=== PATIENT | male | born 1945 | race Caucasian/White ===

== ENCOUNTER → 2017-04-24 | Outpatient (CLI) | payer BC ==
[~2017-04-24] MED LIST: AMIO200T4 PO; ASPI81TA28 PO; CARV6.25 PO; CGN1 PO; FRS/40 PO; LISI-729 PO; MULT-506 PO; PRLSR20 PO; TRIF5TAB PO; VITACAP26 PO; VITAMIN E PO
--- NOTE | 2017-04-24 10:02 | DIAGNOSTIC IMAGING REPORT ---
ABDOMEN AND PELVIS CT WITH AND WITHOUT IV CONTRAST, UROGRAM PROTOCOL CT DOSE: 2531.81 mGy.cm HISTORY: N20.0 Calculus of [id number] Personal history of bladder cancer TECHNIQUE: Multiaxial CT images of the abdomen and pelvis were performed both before and after the use of intravenous contrast to evaluate the urinary system. Maximal intensity projection images were performed at the workstation by the radiologist. A dose lowering technique was utilized adhering to the principles of ALARA. COMPARISON STUDY: None. FINDINGS: The right kidney is surgically absent. There is a 2 mm stone within the left kidney. No left ureteral calculi. Calcifications along the left side the bladder which could be within the wall. The residual right ureter is normal in course and caliber. No soft tissue masses within the right nephrectomy bed. Mild left perinephric edema which is nonspecific. No hydronephrosis. A 1.5 cm hypodense lesion within the left kidney. This likely represents a cyst. Abnormal asymmetric lobular thickening along the left side of the bladder. This includes a focal masslike area of thickening on image 392 which measures 2.1 x 1.1 cm. The mid to distal left ureter is not opacified which results in suboptimal evaluation. The ureters normal in course and caliber. No suspicious filling defects seen within the left renal collecting system or proximal left ureter. Small to moderate right pleural effusion. The heart is mildly enlarged. Consolidation within the right lower lobe posteriorly favors compressive atelectasis from the pleural effusion. Mild emphysema. There is also partial visualization of the right middle lobe consolidation which favors partial collapse. Bilateral L4 and L5 pars defects with grade II anterolisthesis of L4 on L5 and severe disc space narrowing. The unenhanced liver, spleen, right adrenal gland, and pancreas are unremarkable. There is a 2.3 cm stone within the gallbladder neck. The gallbladder is not significantly distended. There is questionable minimal pericholecystic inflammatory change. Nodular thickening of the left adrenal gland. No retroperitoneal lymphadenopathy. Tiny fat-containing umbilical hernia. Fatty atrophy of the right rectus abdominis muscle. No pelvic lymphadenopathy. No bowel wall thickening or obstruction. Colonic diverticulosis. Normal appendix. IMPRESSION: 1. Prior right nephrectomy. 2. Left-sided nephrolithiasis. No ureteral stones. No hydronephrosis. 3. Abnormal asymmetric lobular thickening within the left bladder wall with a focal 2.1 x 1.1 cm area of masslike thickening at this location. This is concerning for a urothelial malignancy. There is also calcification along the left side of the bladder which could be within the wall given the nondependent appearance. Direct visualization is recommended for further evaluation. 4. The majority of the left ureter is not opacified which results in suboptimal evaluation. No suspicious filling defects seen within the opacified left renal collecting system or proximal left ureter. 5. Small to moderate right pleural effusion. 6. Consolidation within the right middle lobe which favors partial atelectasis. Consider follow nonemergent chest CT for further evaluation and to exclude the possibility of a nonvisualized central obstructing lesion. 7. A large stone within the neck of the gallbladder with possible pericholecystic inflammatory change. Consider right upper quadrant ultrasound if the patient is experiencing right upper quadrant abdominal pain. 8. Additional findings as described above. Electronically signed by: Sean Stuart M.D. 04/24/2017 10:00 AM Dictated Date/Time: 04/24/2017 9:47 AM
== END | disposition home or self-care (01) ==
LOC: C.CTS 09:19
PROVIDERS: ATTEND Urology
DX: N20.0 Calculus of kidney (principal); Z85.51 Personal history of malignant neoplasm of bladder; Z90.5 Acquired absence of kidney; J90 Pleural effusion, not elsewhere classified; R91.8 Other nonspecific abnormal finding of lung field; K80.20 Calculus of gallbladder without cholecystitis without obstruction